=== PATIENT | female | born 1960 | race Caucasian/White ===

== ENCOUNTER 2019-04-24 06:38 | Day surgery (SDC) | payer BC ==
--- NOTE | 2019-04-23 18:50 | Pre-Procedure Note/Attestation ---
Pre-Procedure Note/Attestation Complete Prior to Procedure Planned Procedure: bilateral Procedure Narrative: 1. Septoplasty 2. Submucous resection of right inferior turbinate 3. Submucous resection of left inferior turbinate Indications for Procedure Pre-Operative Diagnosis: 1. Nasal septal deviation 2. Hypertrophied right inferior turbinate 3. Hypertrophied left inferior turbinate Attestation I attest that I discussed the nature of the procedure; its benefits; risks and complications; and alternatives (and the risks and benefits of such alternatives ), prior to the procedure, with the patient (or the patient's legal health and safety representative). I attest that, if there was a reasonable possibility of needing a blood transfusion, the patient (or the patient's legal health and safety representative) was given the [facility] standardized written summary, pursuant to the Domenic Du Blood Safety Act ([place] Health and Safety Code # 1645, as amended). I attest that I re-evaluated the patient just prior to the surgery and that there has been no change in the patient's H&P, completed by her PMD-reviewed and approved by me. Guillaume Vizcaino MD Apr 23, 2019 18:50
--- NOTE | 2019-04-23 18:51 | Brief Operative Note ---
Immediate Post Operative Note Operative Note Pre-op Diagnosis: 1. Nasal septal deviation 2. Hypertrophied right inferior turbinate 3. Hypertrophied left inferior turbinate Procedure: 1. Septoplasty 2. Submucous resection of right inferior turbinate 3. Submucous resection of left inferior turbinate Post-op Diagnosis: same as pre-op Surgeon: Guillaume Vizcaino Geophysical Data Technician: none Additional Surgeons: none Anesthesiologist: Chasity Anesthesia: general Specimen: none Complications: none Condition: stable Fluids: D5LR Estimated Blood Loss: volume - 20 cc Drains: none Packing: Sino-Nasal gel Implant(s) used?: No Guillaume Vizcaino MD Apr 23, 2019 18:51
--- NOTE | 2019-04-23 18:55 | Discharge Instructions ---
Discharge Instructions Discharge Instructions Follow up with: pt already scheduled with Dr. Vizcaino 04/30/19 10AM at his office Diet: regular Resume Normal Activity?: No Activity: light activity Pneumonia Vaccine: pt refused vaccine Influenza Vaccine (Mar to Aug): pt refused vaccine Follow Up Orders pt has printed post op instruction which were reviewed and given to her at her pre op visit in my office about 1 week ago. Return to Work/School on: May 07, 2019 Special Instructions ice to nose x 48 hours. For Surgical Patients Dressing Care: may change For Congestive Heart Failure Reminder Report to your physician any weight gain of 5 pounds or more in one week. Guillaume Vizcaino MD Apr 23, 2019 18:55
[2019-04-24] VITALS (8 sets, daily range): BP systolic 124–148; BP diastolic 76–87
[~2019-04-24] VITALS: Ht 175.3 cm; Wt 98.0 kg
[~2019-04-24 06:38] MED LIST: ALEVE220 M2 PO; ASPIR 8181 MG ORAL; ASTEPRO205.5 MCG1 NS; AZITHROMYCIN500 MG ORAL; CHLORTHALIDONE25 MG ORAL; MEGARED OMEGA-1 EAC1 PO; MICARDIS40 MG ORAL; NORCO 5-325 TA1 EACH ORAL; VITAMIN B COMP1 EAC2 ORAL; VITAMIN D400 INTLU ORAL; ZYRTEC10 MG ORAL; ceFAZolin sod 1 GM in D5W 55 ML IV ONE
[2019-04-24] MEDS ORDERED: Clindamycin 600mg 50 ML IV ONE (07:00)
[2019-04-24] MEDS ORDERED: Dexamethasone 4mg/ml vial IVP ONE (07:20)
[2019-04-24] MEDS ORDERED: Lidocaine 1% 10mg/ml/Epi 0.005mg/ml 30ml vial INJ ONE (08:42)
[2019-04-24] MEDS ORDERED: Bupivacaine 0.5% Inj 30 ml vial INJ ONE (08:42)
[2019-04-24] MEDS ORDERED: Cocaine HCl 4% 4ml vial TOPIC ONE (08:42)
[2019-04-24] MEDS ORDERED: Alfentanil 2ml Inj ONE (08:51)
[2019-04-24] MEDS ORDERED: Midazolam 2mg/2ml Inj ONE (08:51)
[2019-04-24] MEDS ORDERED: Lidocaine 1% MPF 10mg/ml 5ml ONE ×2 (08:51→09:25)
[2019-04-24] MEDS ORDERED: Dexamethasone 4mg/ml vial ONE (08:51)
[2019-04-24] MEDS ORDERED: LR 1000ml 1,000 ML IVLG SCH (08:56)
[2019-04-24] MEDS ORDERED: Atropine Sulfate 0.4mg/ml inj IVP PRN (09:00)
[2019-04-24] MEDS ORDERED: LR 1000ml ONE (09:00)
[2019-04-24] MEDS ORDERED: DiphenhydrAMINE 50mg/ml Inj IVP PRN (09:00)
[2019-04-24] MEDS ORDERED: Midazolam 2mg/2ml Inj IVP PRN (09:00)
[2019-04-24] MEDS ORDERED: Propofol 200mg/20ml IV ONE (09:00)
[2019-04-24] MEDS ORDERED: LORazepam Inj 2mg/ml 1ml IV PRN (09:00)
[2019-04-24] MEDS ORDERED: Ketorolac 30mg Inj IV PRN ×2 (09:00)
[2019-04-24] MEDS ORDERED: Metoclopramide 10mg/2ml Inj IVP PRN ×2 (09:00→10:00)
[2019-04-24] MEDS ORDERED: Meperidine 50mg/ml Inj(FOR RIGORS ONLY) IVP PRN (09:00)
[2019-04-24] MEDS ORDERED: fentaNYL 100 mcg/2 mL IV PRN (09:00)
[2019-04-24] MEDS ORDERED: HYDROcodone/Acetamin 5/325 tab ORAL PRN ×2 (09:00→10:00)
[2019-04-24] MEDS ORDERED: Hydromorphone 0.5mg/0.5ml inj IVP PRN (09:00)
[2019-04-24] MEDS ORDERED: Labetalol 5mg/ml 20ml vial IV PRN (09:00)
[2019-04-24] MEDS ORDERED: oxyCODONE HCL/Acetaminophen 5/325mg ORAL PRN (09:00)
[2019-04-24] MEDS ORDERED: HYDROcodone/Acetamin 7.5/325 tab ORAL PRN (09:00)
[2019-04-24] MEDS ORDERED: Sterile Water Irrig 1000ml IRRIG ONE (09:00)
[2019-04-24] MEDS ORDERED: NS Irrig 1000ml ONE (09:00)
--- NOTE | 2019-04-24 09:59 | Anethesia Preoperative Eval ---
Anesthesia Pre-op PMH/ROS General Date of Evaluation: Apr 24, 2019 Time of Evaluation: 08:47 Anesthesiologist: Chasity ASA Score: ASA 3 Mallampati Score Class I : Soft palate, uvula, fauces, pillars visible Class II: Soft palate, uvula, fauces visible Class III: Soft palate, base of uvula visible Class IV: Only hard plate visible Mallampati Classification: Class III Surgeon: Carrillo Diagnosis: KESHAV Surgical Procedure: Septoplasty, Bilateral Turbinectomies Anesthesia History: none Social History: current smoker Family History: no anesthesia problems Allergies: Coded Allergies: PENICILLINS (Verified Allergy, Unknown, 04/23/19) SKIN RASH Medications: see eMAR Patient NPO?: Yes Past Medical History Cardiovascular: Reports: HTN Pulmonary: Reports: KESHAV Gastrointestinal/Genitourinary: Reports: GERD Other: obesity - Morbid BMI 41 PSxH Narrative: C/S, Ectopic Anesthesia Pre-op Phys. Exam Physician Exam Last Vital Signs Date Time Temp Pulse Resp B/P (MAP) Pulse Ox O2 Delivery O2 Flow Rate FiO2 04/24/19 07:16 97.0 89 18 136/76 93 Room Air Constitutional: NAD Neurologic: CN 2-12 intact Cardiovascular: RRR Respiratory: CTA Gastrointestinal: S/NT/ND Airway Exam Mallampati Score: Class III MO: limited ROM: limited Teeth: missing, intact, broken, loose Anesthesia Pre-op A/P Risk Assessment & Plan Assessment: ASA 3 Plan: GA, GlideScope Go Status Change Before Surgery: No Pre-Antibiotics Dru Grams Ancef IV Given Within 1 Hr of Incision: Yes Time Given: 09:06 Poncho Gaspar MD Apr 24, 2019 09:59
[2019-04-24] MEDS ORDERED: HYDROmorphone 1mg/ml Carpuject SUBQ PRN (10:00)
--- NOTE | 2019-04-24 10:01 | Immediate Post-Op Evaluation ---
Immediate Post-Op Evalulation Immediate Post-Op Evalulation Procedure: Septoplasty, Bilateral Turbinectomies Date of Evaluation: Apr 24, 2019 Time of Evaluation: 10:10 IV Fluids: 300 LR Blood Products: 0 Estimated Blood Loss: 30 Urinary Output: 0 Blood Pressure Systolic: 148 Blood Pressure Diastolic: 87 Pulse Rate: 94 Respiratory Rate: 16 O2 Sat by Pulse Oximetry: 96 Temperature (Fahrenheit): 98.8 Pain Score (1-10): 2 Nausea: No Vomiting: No Complications 0 Patient Status: awake, reacts, patent, extubated, none Hydration Status: adequate Dru Grams Ancef IV Given Within 1 Hr of Incision: Yes Time Given: 09:06 Poncho Gaspar MD Apr 24, 2019 10:01
--- NOTE | 2019-04-24 10:01 | General Progress Note ---
Progress Note Progress Note Re Penicillin allergy-pt tolerated ancef in operating room without and reaction. She should be able to tolerate oral Cephalexin. Guillaume Vizcaino MD Apr 24, 2019 10:01
--- NOTE | 2019-04-24 13:00 | NUR ---
NURSE NOTES: Pt required redirection yelling stating she did not want to be here. Charge nurse called, Throwing items. Pt received from surgery nose packed. SCD on pt non cooperative demanding bx. Did not want to cooperate with observation questions yelling out each answer. Due to sleep apnea nose packing . Pt will be monitored for bleeding and respiratory state
--- NOTE | 2019-04-24 17:00 | Operative Note - Dictated ---
DATE OF OPERATION: 04/24/2019 SURGEON: Guillaume Vizcaino M.D. FINANCIAL SERVICES REPRESENTATIVE: None. ANESTHESIOLOGIST: Poncho Gaspar M.D. ANESTHESIA: Oral endotracheal anesthesia with 15 mL of 50:50 mixture 1% lidocaine with 1:100,000 epinephrine and Marcaine 1:200,000 epinephrine. Additionally, 4 mL of 4% topical cocaine placed on four nasal pledgets, two on either nostril accounted for at the end of the case. INDICATION FOR SURGERY: The patient with nasal septal deviation and hypertrophied right and left inferior turbinates as well as sleep apnea and difficulty using CPAP machine. PREOPERATIVE DIAGNOSES: The patient with nasal septal deviation and hypertrophied right and left inferior turbinates as well as sleep apnea and difficulty using CPAP machine. POSTOPERATIVE DIAGNOSES: The patient with nasal septal deviation and hypertrophied right and left inferior turbinates as well as sleep apnea and difficulty using CPAP machine. FINDINGS: The patient with nasal septal deviation and hypertrophied right and left inferior turbinates as well as sleep apnea and difficulty using CPAP machine. PROCEDURE: 1. Septoplasty. 2. Submucous resection, right inferior turbinate. 3. Submucous resection, left inferior turbinate. TECHNIQUE: The patient was prepped and draped in usual manner. A time-out was performed. All agreed as the procedure to be done after the patient was intubated endotracheally. Initially I injected the aforementioned lidocaine, Marcaine, and epinephrine mixture as noted above into the inferior turbinates and the septum. This was followed by the four nasal pledgets with 4% topical cocaine, two in either nostril. Initially I addressed the left inferior turbinate. I made a small incision anterior inferiorly. I then passed the radiofrequency wand after coating with saline gel at a setting of 6 x10 seconds twice. This was followed by outfracturing of the inferior turbinate on the left. I then addressed the right inferior turbinate. Incision made with a 15 blade anterior inferior position. I then passed the radiofrequency wand again coating it with saline gel setting of 6 x2 10 seconds each in the inferior turbinate. Subsequently I outfractured the inferior turbinate as well laterally. I then made a [place] incision on the right side of the septum with a 15 blade. It was able to elevate with a dental elevator on either side over the periosteum and perichondrium. I then utilized an angled small scissors to remove part of the septum as anteriorly, superiorly, and inferiorly leaving a centimeter anteriorly and inferiorly for support. I then proceeded to close this with a 4-0 plain suture x1. There was no perforation of the flap on the left hand side. Completely intact. I then placed a sinonasal gel one syringe full between the two nostrils or little more on the right-hand side. ESTIMATED BLOOD LOSS: 20 mL. COMPLICATIONS: None. DRAINS: None. COUNTS: Sponge and needle count was correct. The patient was awake and alert, and stable in the operating room prior to transfer to the recovery room. She will be staying overnight because of sleep apnea. Guillaume Vizcaino M.D. DR: ARIELA JOB#: [id number] CC:
[2019-04-24] MEDS ORDERED: Cephalexin 500mg cap ORAL SCH (18:00)
--- NOTE | 2019-04-24 19:30 | NUR ---
NURSE NOTES: Received report from RAMAN Myers. Received pt in bed, AOx4, denies any pain, no distress noted. Surgical dressing c/d/i. On 0xygen, continuous pulse ox inplace 97%. Bed in lowest position and locked, side rails up x 2, call light within reach. Pt's own healthcare customer service at bedside. Will continue to monitor.
--- NOTE | 2019-04-24 19:56 | NUR ---
NURSE NOTES: Dr Vizcaino gave clearance for pt to have home medications of chlorthalidone 12.5 mg po daily and Telmisartan 40 mg PO daily . As well as Nicotine Patch . Pharmacy phoned for Telmisartan that is not carried . Will endorse to oncoming nurse that Telmisartan is not carried here
--- NOTE | 2019-04-24 20:00 | NUR ---
NURSE NOTES: IV came out. Applied 2x2 gauze and tape. Minimal bleeding noted.
--- NOTE | 2019-04-24 20:36 | NUR ---
NURSE NOTES: New IV placed. pt pulled out IV line . No bleeding no nasal area. Po antibiotics given
[2019-04-25] VITALS: BP 118/75
[2019-04-25 04:00] VITALS: BP 121/77
--- NOTE | 2019-04-25 07:00 | NUR ---
NURSE NOTES: Discharge pt via wheelchair accompanied by brother, child care counselor, and DARLING Henley. No IV access. VSS. Oxygen sat. 97%. Pt in stable condition. All belongings taken.
[2019-04-25 10:45] VITALS: BP 121/77
--- NOTE | 2019-04-25 10:45 | 48 Hour Post Anesthesia Eval ---
Post Anesthesia Evaluation Procedure: Septoplasty, Bilateral Turbinectomies Date of Evaluation: Apr 25, 2019 Time of Evaluation: 10:44 Blood Pressure Systolic: 121 0: 77 Pulse Rate: 77 Respiratory Rate: 18 Temperature (Fahrenheit): 97.8 O2 Sat by Pulse Oximetry: 95 Airway: patent Nausea: No Vomiting: No Pain Intensity: 2 Hydration Status: adequate Cardiopulmonary Status: Stable Mental Status/LOC: patient returned to baseline Follow-up Care/Observations: 0 Post-Anesthesia Complications: 0 Follow-up care needed: ready to discharge Poncho Gaspar MD Apr 25, 2019 10:45
== END 2019-04-25 07:00 | disposition home or self-care (01) ==
LOC: SUR 06:38 → 3E 11:33
DX: J34.2 Deviated nasal septum (principal); J34.3 Hypertrophy of nasal turbinates; G47.30 Sleep apnea, unspecified; K21.9 Gastro-esophageal reflux disease without esophagitis; I10 Essential (primary) hypertension; G47.33 Obstructive sleep apnea (adult) (pediatric); E66.01 Morbid (severe) obesity due to excess calories; Z68.31 Body mass index [BMI] 31.0-31.9, adult; F17.200 Nicotine dependence, unspecified, uncomplicated
CPT/HCPCS: 30140; 30520; J0690; J1100; J2250; J2405; J2704; J3490; 94003; 94150